=== PATIENT | male | born 2000 | race Caucasian/White ===

== ENCOUNTER 2022-07-27 04:10 | Observation (INO) ==
--- NOTE | 2022-07-27 04:36 | Emergency Department Note ---
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 He took his temperature at home and is 100.9. 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 Patient in the past had been on low-dose penicillin. Patient has received the Pneumovax vaccine. Patient is also up-to-date with all of his immunizations. Patient was told if he had a temperature greater than 101 that he needs to seek medical treatment and get blood cultures to make sure that he did not have sepsis or occult bacteremia or an overwhelming staph infection. Patient denies cough cold congestion symptoms. Patient had COVID during the summer and he self isolated and was on Paxlovid. Patient has no complaints of abdominal pain no chest pain no shortness of breath no diarrhea no rash no significant headache no neck pain no photophobia. Patient has no recent travel no recent antibiotic use Home Medications Medication Instructions Recorded Confirmed Type penicillin V potassium 250 mg 250 mg PO BID 05/02/19 05/02/19 History tablet Allergies Allergy/AdvReac Type Severity Reaction Status Date / Time cephalexin [From Keflex] Allergy Intermediate Rash Verified 05/02/19 17:42 Past Med/Surg History Medical History (Updated 07/27/22 @ 05:42 by Pedro Ulloa DO) Wilms' tumor Surgical History History of left nephrectomy History of splenectomy Social History Smoking Status: Current every day smoker Tobacco Type: E-cigarettes / Vaping Preferred Language: Indian Feels Safe at Home: Yes Review of Systems A total of 10 systems reviewed and were otherwise negative Constitutional: + fever, + chills and + fatigue Respiratory: no cough Cardiovascular: no chest pain Gastrointestinal: no abdominal pain Physical Exam Vital Signs Vital Signs - 24 hr 07/27/22 04:11 07/27/22 04:17 Temperature 37.4 C Temperature Source Oral Pulse Rate 120 H Respiratory Rate 18 Respiratory Effort / Characteristics Non-Labored Spontaneous Respiratory Depth Normal Blood Pressure 121/78 Blood Pressure Mean 92 Blood Pressure Position Sitting Pulse Oximetry 96 98 Oxygen Delivery Method Room Air Room Air Sepsis Recent Fever Within 48 Hours Yes Sepsis New/Unexplained Change in Mental Status No Sepsis Action Taken by Nursing No Action Required GENERAL: Patient is awake alert in no acute distress patient is resting comfortably and showing no signs of anxiety EYES: The conjunctivae are clear. The pupils are round and reactive. EARS, NOSE, MOUTH AND THROAT: The nose is without any evidence of any deformity. Mucous membranes are moist. Tongue is midline. NECK: The neck is nontender and supple. No meningismus RESPIRATORY: Normal respiratory effort is noted there is no evidence of wheezing rhonchi or rales CARDIOVASCULAR: Regular rate and rhythm noted there no murmurs rubs or gallops normal S1 normal S2. GASTROINTESTINAL: The abdomen is soft. Abdomen is nontender. large surgical scars present BACK: No midline tenderness or or step-off noted range of motion in flexion extension as well as rotation no signs of muscle spasm noted MUSCULOSKELETAL/EXTREMITIES: There is no evidence of gross deformity full range of motion is noted in the hips and shoulders. SKIN: There is no obvious evidence of any rash. There are no petechiae, pallor or cyanosis noted. NEUROLOGIC: Patient is awake alert and oriented x3 strength is symmetric PSYCH:Normal affect Course Reevaluation(s) Reevaluation #1: Patient received IV fluids he is resting in no distress on repeat examination he is not hypotensive. Time: 05:15 Reevaluation #2: Patient on repeat examination is resting in no distress. We have discussed the evaluation with the patient, the hospitalist is also bedside with me at the time of reevaluation Time: 05:41 Consultations Consultation #1: Consult to [facility] hospitalist Dr. George -states agrees with septic work- up and if essentially negative may be discharged on Augmentin with strict follow-up in 48 hours or for any worsening symptoms and blood cultures have been sent. Time: 05:15 Consultation #2: Spoke again with Dr. George, patient meets SIRS criteria and with his history of asplenia we will admit and placed on empiric antibiotics for now. Time: 05:41 Administered Medications Sodium Chloride (Nss 1000ml) 1,000 mls @ 999 mls/hr IV .Q1H1M LACIE Stop: 07/27/22 06:30 Last Admin: 07/27/22 04:48 Dose: 999 mls/hr Documented By: FELICIA Medical Decision Making Medical Records Attestation: I reviewed the patient's medical records. Home Medications Current Medication List: was personally reviewed by me Laboratory Data Attestation: I reviewed the patient's lab results. Slight elevation in white blood cell count with increased neutrophils 07/27/22 04:30 07/27/22 04:30 Lab Results 07/27/22 07/27/22 07/27/22 Range/Units 04:30 04:30 04:30 WBC 11.06 H (4.8-10.8) K/ul RBC 4.30 L (4.70-6.10) M/uL Hgb 14.5 (14.0-18.0) g/dl Hct 41.1 L (42.0-52.0) % MCV 95.6 (80.0-100.0) fL MCH 33.7 (25.0-34.0) pg MCHC 35.3 (32.0-36.0) g/dL RDW Std Deviation 46.4 H (36.4-46.3) fL RDW Coeff of Mayra 13.2 (11.5-14.5) % Plt Count 297 (130-400) K/uL MPV 10.1 (9.4-12.4) fL Immature Gran % (Auto) 0.3 % Neut % (Auto) 76.8 % Lymph % (Auto) 6.8 % [place] % (Auto) 14.8 % Eos % (Auto) 0.6 % Baso % (Auto) 0.7 % Neut # (Auto) 8.49 H (1.40-6.50) K/uL Lymph # (Auto) 0.75 L (1.2-3.4) K/uL [place] # (Auto) 1.64 H (0.11-0.59) K/uL Eos # (Auto) 0.07 (0-0.50) K/uL Baso # (Auto) 0.08 (0-0.2) K/uL Immature Gran # (Auto) 0.03 (0.01-0.20) K/uL Sodium 137 (136-145) mmol/L Potassium 4.1 (3.5-5.1) mmol/L Chloride 101 (98-107) mmol/L Carbon Dioxide 31 (21-32) mmol/L Anion Gap 5 (3-11) BUN 17 (6-23) mg/dl Creatinine 1.23 (0.6-1.4) mg/dl Est Cr Clr Drug Dosing 92.7 ml/min Est GFR ( Amer) 96.7 ml/min Est GFR (Non-Af Amer) 83.4 ml/min BUN/Creatinine Ratio 13.8 (10-20) Glucose 103 H (70-99(Fasting)) mg/dl Lactate 0.8 (0.4-2.0) mmol/L Calcium 9.8 (8.5-10.1) mg/dl Magnesium 1.9 (1.7-2.4) mg/dl Total Bilirubin 0.4 (0.2-1.0) mg/dl Direct Bilirubin 0.1 (0-0.2) mg/dl AST 20 (13-39) U/L ALT 14 (7-52) U/L Alkaline Phosphatase 78 (34-104) U/L Total Protein 8.0 (6.0-8.3) gm/dl Albumin 4.8 (3.4-5.0) gm/dl SARS-CoV-2 (PCR) (Negative) Influenza Type A (PCR) (Neg) Influenza Type B (PCR) (Neg) RSV (RT-PCR) (Neg) 07/27/22 Range/Units 04:30 WBC (4.8-10.8) K/ul RBC (4.70-6.10) M/uL Hgb (14.0-18.0) g/dl Hct (42.0-52.0) % MCV (80.0-100.0) fL MCH (25.0-34.0) pg MCHC (32.0-36.0) g/dL RDW Std Deviation (36.4-46.3) fL RDW Coeff of Mayra (11.5-14.5) % Plt Count (130-400) K/uL MPV (9.4-12.4) fL Immature Gran % (Auto) % Neut % (Auto) % Lymph % (Auto) % [place] % (Auto) % Eos % (Auto) % Baso % (Auto) % Neut # (Auto) (1.40-6.50) K/uL Lymph # (Auto) (1.2-3.4) K/uL [place] # (Auto) (0.11-0.59) K/uL Eos # (Auto) (0-0.50) K/uL Baso # (Auto) (0-0.2) K/uL Immature Gran # (Auto) (0.01-0.20) K/uL Sodium (136-145) mmol/L Potassium (3.5-5.1) mmol/L Chloride (98-107) mmol/L Carbon Dioxide (21-32) mmol/L Anion Gap (3-11) BUN (6-23) mg/dl Creatinine (0.6-1.4) mg/dl Est Cr Clr Drug Dosing ml/min Est GFR ( Amer) ml/min Est GFR (Non-Af Amer) ml/min BUN/Creatinine Ratio (10-20) Glucose (70-99(Fasting)) mg/dl Lactate (0.4-2.0) mmol/L Calcium (8.5-10.1) mg/dl Magnesium (1.7-2.4) mg/dl Total Bilirubin (0.2-1.0) mg/dl Direct Bilirubin (0-0.2) mg/dl AST (13-39) U/L ALT (7-52) U/L Alkaline Phosphatase (34-104) U/L Total Protein (6.0-8.3) gm/dl Albumin (3.4-5.0) gm/dl SARS-CoV-2 (PCR) NEGATIVE (Negative) Influenza Type A (PCR) Negative (Neg) Influenza Type B (PCR) Negative (Neg) RSV (RT-PCR) Negative (Neg) Imaging Data Attestation: I personally reviewed and interpreted this imaging study as follows: My Impression: Chest x-ray interpreted by me negative for infiltrate ECG Data Attestation: I personally reviewed and interpreted this ECG as follows: Additional Comments: EKG interpreted by me sinus tachycardia rate of 104 normal intervals normal axis no obvious ST segment elevation or depression MDM Narrative Medical decision making differential diagnosis includes viral syndrome, bronchitis upper respiratory tract infection pneumonia COVID occult bacteremia Plan is to check sepsis labs With the patient's history of asplenia, the patient does have criteria that is concerning for SIRS. 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
[2022-07-27] MEDS: SODIUM CHLORIDE 0.9% 1000ML 1,000 ML IV SCH ×2 (04:48→07:16)
[2022-07-27 04:53] LABS: Basophils # (auto) 0.08 K/uL (0-0.2); Basophils % (auto) 0.7 %; Eosinophils # (auto) 0.07 K/uL (0-0.50); Eosinophils % (auto) 0.6 %; Hematocrit (blood only) 41.1 % (42.0-52.0); Hemoglobin 14.5 g/dl (14.0-18.0); Immature Granulocytes # (auto) 0.03 K/uL (0.01-0.20); Immature Granulocytes % (auto) 0.3 %; Lymphocytes # (auto) 0.75 K/uL (1.2-3.4); Lymphocytes % (auto) 6.8 %; Mean Corpuscular Hemoglobin 33.7 pg (25.0-34.0); Mean Corpuscular Hgb Conc 35.3 g/dL (32.0-36.0); Mean Corpuscular Volume 95.6 fL (80.0-100.0); Mean Platelet Volume 10.1 fL (9.4-12.4); Monocytes # (auto) 1.64 K/uL (0.11-0.59); Monocytes % (auto) 14.8 %; Neutrophils # (auto) 8.49 K/uL (1.40-6.50); Neutrophils % (auto) 76.8 %; Platelet Count 297 K/uL (130-400); RDW Coefficient of Variation 13.2 % (11.5-14.5); RDW Standard Deviation 46.4 fL (36.4-46.3); White Blood Count 11.06 K/ul (4.8-10.8)
[2022-07-27 05:07] LABS: Albumin Level 4.8 gm/dl (3.4-5.0); BUN Creatinine Ratio 13.8 (10-20); Bilirubin Direct 0.1 mg/dl (0-0.2); Bilirubin,Total 0.4 mg/dl (0.2-1.0); Calcium 9.8 mg/dl (8.5-10.1); Creatinine Clr Calc Pharmacy 92.7 ml/min; Est GFR (African American) 96.7 ml/min; Est GFR (Non-African American) 83.4 ml/min; Magnesium 1.9 mg/dl (1.7-2.4); Potassium 4.1 mmol/L (3.5-5.1)
[2022-07-27] MEDS ORDERED: MEROPENEM 2,000 MG in 0.9 % SODIUM CHLORIDE 58 ML IV STA (05:21)
[2022-07-27] MEDS ORDERED: VANCOMYCIN CONSULT ACTIVE PRN ×2 (05:21→06:17)
[2022-07-27] MEDS ORDERED: VANCOMYCIN HCL 1,500 MG in SODIUM CHLORIDE 0.9% 500 ML IV ONE (05:21)
[2022-07-27 05:23] LABS: Influenza A virus by PCR Negative (Neg); Influenza B virus by PCR Negative (Neg); RSV by PCR Negative (Neg); SARS CoV2 RNA(COVID-19) Ceph NEGATIVE (Negative)
--- NOTE | 2022-07-27 05:28 | History & Physical Report ---
Date of Service July 27, 2022 Assessment & Plan (1) SIRS (systemic inflammatory response syndrome): Plan: 22yo male with history of asplenia, UTD on childhood vaccines presenting with sepsis. SIRS 2/4, unclear source. Patient with documented fever at home of 100 .9. Tachycardic on arrival to 120bpm. He has mild leukocytosis with WBC=11.06 with elevated neutrophils and monocytes and lymphopenia. Patient describes non- focal symptoms of headache fatigue and chills. Denies neck stiffness. Additional workup to include UA is pending. Given patient's asplenia and sepsis patient would benefit from brief hospitalization with empiric antibiotics while we await cultures. -Observation to medical with telemetry -Check mono-spot -Follow cultures -UA pending -Empiric Vancomycin and Meropenem. Patient has a documented allergy to Keflex from childhood -Tylenol PRN pain or fever -Zofran PRN nausea -Consider ID consultation F/E/N: LR at 125mL/hr x 1 liter, electrolytes WNL, regular diet as tolerated Ppx - Low risk for DVT, encourage ambulation as tolerated Code - Full Dispo - Observation to medical with telemetry History of Present Illness Chief Complaint: sepsis, asplenia Primary Care Provider: [facility] Triston Montero is a 22yo male with history of Wilms tumor s/p nephrectomy and splenectomy in 2008 presenting with fever. Patient developed a slight headache 07/26/22 around 22:00. He went to bed with the headache. He woke around 0300 this AM with worsening headache and chills. He took his temperature and found it to be elevated to 100.9. Patient called his parents who encouraged him to come to the ER. Patient does have empiric PCN VK at home. Did not take any prior to arrival. Still with frontal headache, feels like pressure. Patient denies visual changes, neck stiffness, nasal congestion, sore throat, swollen lymph nodes, dental pain, chest pain, cough, SOB, abdominal pain, nausea, vomiting, diarrhea, constipation, dysuria, penile discharge, skin rash or joint swelling/pain. No sick contacts or recent travel. No additional complaints at this time. In the ER he is found to be tachycardic. Heart rate initially 120bpm. Blood pressure is stable. No respiratory distress. Adequate oxygenation on room air. Labs as below with leukocytosis. Covid/Flu/RSV is NEGATIVE, Procalcitonin is NEGATIVE, Lactate=0.8, UA and cultures pending at this time. ER Course: NSS x 1L started Vancomycin 2gm ordered - not yet given Meropenem 2gm ordered - not yet given Allergies Allergy/AdvReac Type Severity Reaction Status Date / Time cephalexin [From Keflex] Allergy Intermediate Rash Verified 05/02/19 17:42 Home Medications Medication Instructions Recorded Confirmed Type penicillin V potassium 250 mg 250 mg PO BID 05/02/19 05/02/19 History tablet Past Med/Surg History Medical History Asplenia Wilms' tumor Surgical History History of left nephrectomy History of splenectomy Family History (Updated 07/27/22 @ 05:50 by Dasha George DO) Other Family history non-contributory Social History (Updated 07/27/22 @ 05:50 by Dasha George DO) Smoking Status: Current every day smoker Tobacco Type: E-cigarettes / Vaping Hx Alcohol Use: No Hx Substance Use: Yes Prescribed Medications: Marijuana Preferred Language: Persian Feels Safe at Home: Yes Review of Systems Review of Systems: All systems reviewed & are unremarkable except as noted in HPI & below Physical Exam Physical Exam: General: patient resting comfortably, NAD, non-toxic in appearance, AA&O x 4 Skin: warm, dry, intact, no rashes or lesions HEENT: NC/AT, PERRL, EOMI, anicteric sclera, conjunctiva without injection, external ear normal to inspection and nontender, nares patent, moist mucus membranes, dentition intact, no oropharyngeal lesions, neck supple, trachea midline, no LAD, no thyromegaly, no JVD, enlarged and cryptic tonsils bilaterally but no erythema, drainage or tonsil-stones Heart: +S1/S2, regular, tachycardic, no m/r/g Lungs: equal air entry bilaterally, no rales/rhonchi/wheezes Abd: +BS, soft, NT/ND, no masses/organomegaly/ascites Ext: warm, 2+ pulses in UE/LE bilaterally, no clubbing/cyanosis or edema Neuro: nonfocal, patient AA&O x 4, speech intact, no facial droop, moving all extremities on command with equal strength 5/5 Results & Data Results & Data ([facility]) Vital Signs (Past 12 Hours) Vital Signs Temp Pulse Resp BP Pulse Ox O2 Del Method 07/27/22 04:17 98 Room Air 07/27/22 04:11 37.4 C 120 H 18 121/78 96 Room Air Laboratory Results Laboratory Results WBC 11.06 K/ul (4.8-10.8) H 07/27/22 04:30 RBC 4.30 M/uL (4.70-6.10) L 07/27/22 04:30 Hgb 14.5 g/dl (14.0-18.0) 07/27/22 04:30 Hct 41.1 % (42.0-52.0) L 07/27/22 04:30 MCV 95.6 fL (80.0-100.0) 07/27/22 04:30 MCH 33.7 pg (25.0-34.0) 07/27/22 04:30 MCHC 35.3 g/dL (32.0-36.0) 07/27/22 04:30 RDW Std Deviation 46.4 fL (36.4-46.3) H 07/27/22 04:30 RDW Coeff of Mayra 13.2 % (11.5-14.5) 07/27/22 04:30 Plt Count 297 K/uL (130-400) 07/27/22 04:30 MPV 10.1 fL (9.4-12.4) 07/27/22 04:30 Immature Gran % (Auto) 0.3 % 07/27/22 04:30 Neut % (Auto) 76.8 % 07/27/22 04:30 Lymph % (Auto) 6.8 % 07/27/22 04:30 [place] % (Auto) 14.8 % 07/27/22 04:30 Eos % (Auto) 0.6 % 07/27/22 04:30 Baso % (Auto) 0.7 % 07/27/22 04:30 Neut # (Auto) 8.49 K/uL (1.40-6.50) H 07/27/22 04:30 Lymph # (Auto) 0.75 K/uL (1.2-3.4) L 07/27/22 04:30 [place] # (Auto) 1.64 K/uL (0.11-0.59) H 07/27/22 04:30 Eos # (Auto) 0.07 K/uL (0-0.50) 07/27/22 04:30 Baso # (Auto) 0.08 K/uL (0-0.2) 07/27/22 04:30 Immature Gran # (Auto) 0.03 K/uL (0.01-0.20) 07/27/22 04:30 Sodium 137 mmol/L (136-145) 07/27/22 04:30 Potassium 4.1 mmol/L (3.5-5.1) 07/27/22 04:30 Chloride 101 mmol/L (98-107) 07/27/22 04:30 Carbon Dioxide 31 mmol/L (21-32) 07/27/22 04:30 Anion Gap 5 (3-11) 07/27/22 04:30 BUN 17 mg/dl (6-23) 07/27/22 04:30 Creatinine 1.23 mg/dl (0.6-1.4) 07/27/22 04:30 Est Cr Clr Drug Dosing 92.7 ml/min 07/27/22 04:30 Est GFR ( Amer) 96.7 ml/min 07/27/22 04:30 Est GFR (Non-Af Amer) 83.4 ml/min 07/27/22 04:30 BUN/Creatinine Ratio 13.8 (10-20) 07/27/22 04:30 Glucose 103 mg/dl (70-99(Fasting)) H 07/27/22 04:30 Lactate 0.8 mmol/L (0.4-2.0) 07/27/22 04:30 Calcium 9.8 mg/dl (8.5-10.1) 07/27/22 04:30 Magnesium 1.9 mg/dl (1.7-2.4) 07/27/22 04:30 Total Bilirubin 0.4 mg/dl (0.2-1.0) 07/27/22 04:30 Direct Bilirubin 0.1 mg/dl (0-0.2) 07/27/22 04:30 AST 20 U/L (13-39) 07/27/22 04:30 ALT 14 U/L (7-52) 07/27/22 04:30 Alkaline Phosphatase 78 U/L (34-104) 07/27/22 04:30 Total Protein 8.0 gm/dl (6.0-8.3) 07/27/22 04:30 Albumin 4.8 gm/dl (3.4-5.0) 07/27/22 04:30 Procalcitonin < 0.05 ng/ml (0-0.5) 07/27/22 04:30 SARS-CoV-2 (PCR) NEGATIVE (Negative) 07/27/22 04:30 Influenza Type A (PCR) Negative (Neg) 07/27/22 04:30 Influenza Type B (PCR) Negative (Neg) 07/27/22 04:30 RSV (RT-PCR) Negative (Neg) 07/27/22 04:30 Diagnostic Findings CXR - by my interpretation - no acute process, no infiltrate or edema PG Care Time/CCT Total # of Minutes Spent Total Time Spent with Patient: Total time spent is greater than 50% in coordination of care (as documented) at patient's floor/unit and/or counseling patient: Coding Level of Care Code 95146 INT INP/OBS CARE 2/55MIN Diagnoses SIRS (systemic inflammatory response syndrome) R65.10
[2022-07-27 05:58] LABS: Appearance Urine Clear (Clear); Bilirubin Urine Negative (Negative); Blood Urine Negative (Negative); Color Urine Yellow; Glucose Urine UA Negative (Negative); Ketones Urine Negative (Negative); Leukocyte Esterase Urine Negative (Negative); Nitrite Urine Negative (Negative); Protein Urine Negative (Negative); Specific Gravity Urine 1.009 (1.000-1.030); Urobilinogen Urine Negative (Negative); pH Urine 6.5 (4.5-7.5)
[2022-07-27] MEDS ORDERED: ACETAMINOPHEN 325 MG TAB PO PRN (06:17)
[2022-07-27] MEDS ORDERED: ONDANSETRON INJ 2 MG/ML 2 ML VIAL IV PRN (06:17)
[2022-07-27] MEDS ORDERED: LACTATED RINGER'S 1,000 ML IV SCH (06:17)
--- NOTE | 2022-07-27 08:46 | XRay Report ---
XR chest 1V portable HISTORY: 22 years-old Male Sepsis acute sepsis COMPARISON: 05/02/2019 TECHNIQUE: AP view of the chest FINDINGS: Cardiomediastinal and hilar silhouettes are within normal limits. Surgical clips project over the upp er abdomen. No pneumothorax, pleural effusion, airspace consolidation or overt pulmonary edema. Bones of the chest appear grossly intact. IMPRESSION: No acute process. ACT 112: Negative or not required by law. The above report was generated using voice recognition software. It may contain grammatical, syntax o r spelling errors. Electronically signed by: Jordin Ruiz M.D. 07/27/2022 8:45 AM
--- NOTE | 2022-07-27 09:17 | Electrocardiogram Report ---
Test Reason : Blood Pressure : / mmHG Vent. Rate : 104 BPM Atrial Rate : 104 BPM P-R Int : 144 ms QRS Dur : 092 ms QT Int : 320 ms P-R-T Axes : 061 089 025 degrees QTc Int : 420 ms Sinus tachycardia Possible Left atrial enlargement Borderline ECG When compared with ECG of 02-MAY-2019 17:17, No significant change was found Confirmed by Hieu Hawk ([id number]) on 07/27/2022 9:16:27 AM Referred By: REFERRED SELF Confirmed By:Hieu Hawk
--- NOTE | 2022-07-27 11:23 | Infectious Disease Consult ---
Date of Consultation July 27, 2022 Assessment & Plan (1) SIRS (systemic inflammatory response syndrome): #Fever/SIRS -negative COVID/flu/RSV. Procalcitonin less than 0.05. UA was negative. -Monospot was positive. -Portable chest x-ray showed no acute process. -Bcxs pending -on empiric meropenem/vancomycin - pt is not on PCN ppx, and does not have h/o frequent infections- reports last occasion was 2018 #h/o wilms tumor, s/p nephrectomy and splenectomy Plan Rec: Supportive care for mononucleosis- discussed with patient precautions to take to prevent infecting others Low suspicion for bacterial infection, so will stop antibiotics at this time. Pt feels significantly improved, and ready to go home and appears very non- toxic. If Bcxs unexpectedly positive, pt advised he would be contacted to return to hospital. Discussed with primary team. Consultation Information Consultation was provided via telemedicine using two-way real-time interactive telecommunication between the patient and the telemedicine provider. For the duration of the visit, the provider was performing the assessment from a different facility than the patient. This includesuse of bluetooth stethoscope forauscultationperformed by the telepresenter that the telemedicine provider can hear if described in the physical exam. Forestry Technician contact information: Please call [facility] . (Phone Number For Physician Use Only) After establishing a telemedicine visit, patient was: Patient was verified with two unique identifiers, Patient/authorized rep acknowledged consent and understanding and Gave permission to continue telehealth session Time Spent with Patient: Initial => 40 min History of Present Illness Attending Physician: Annette Neely MD History of Present Illness ID consult requested for fever and mononucleosis in this 22-year-old male, past medical history of Wilms tumor, left nephrectomy and splenectomy, reportedly UTD with immunizations, who presented to the ED on 07/27/2022 reporting headache, chills, fatigue and a temperature of 100.9 earlier that morning. He denied any URI symptoms, cough, abdominal pain, shortness of breath, diarrhea, rash, significant headache, neck pain or photophobia. He denied any recent travel. In the ED, temperature was 37.4, heart rate 120, respiratory rate 18, O2 saturation 96% on room air, blood pressure 121/78. Admission labs significant for WBC 11.06, 76.8% neutrophils, 6.8 lymphocytes, creatinine 1.23, nl LFTs, lactate 0.8, negative COVID/flu/RSV. Procalcitonin less than 0.05. UA was negative. Monospot was positive. Portable chest x-ray showed no acute process. Creatinine in 2019 was 1.2. 07/27 blood cultures are pending. Patient is currently on meropenem 2 g IV every 8 and vancomycin 1 g IV every 12. Patient with reported allergy to cephalexin (rash) but has tolerated ceftriaxone. He was also discharged from the ED in April 2019 on cefdinir. Patient has been afebrile, hemodynamically stable and on room air. He denies sore throat, LAD, abd pain, rash or sick contacts. He reports he had mono approx. 4 years ago. He lives with 2 roommates. He reports feeling much better- MCNULTY resolved, fatigue improved. Last ED note in EMR is from 2019 and he reports he has not had an infection since 2019. He is no longer on penicillin prophylaxis after discussion with his oncologist who told him it was up to him. Allergies Allergy/AdvReac Type Severity Reaction Status Date / Time cephalexin [From Keflex] Allergy Intermediate Rash Verified 05/02/19 17:42 Home Medications Medication Instructions Recorded Confirmed Type penicillin V potassium 250 mg 250 mg PO BID 05/02/19 05/02/19 History tablet Patient History Medical History Asplenia Wilms' tumor Surgical History History of left nephrectomy History of splenectomy Family History Other Family history non-contributory Social History Smoking Status: Never smoker Tobacco Type: E-cigarettes / Vaping Second Hand Exposure: No; Hx Alcohol Use: Yes Alcohol type: beer Hx Substance Use: Yes Prescribed Medications: Marijuana Last Used Substance: Days (ago) Last Used Substance Other:: 2 weeks ago Preferred Language: Gibraltarian Communication Ability: Effective Clinical Medical Transcriptionist Required: No Current Living Situation: Other Current Living Situation Comment: apartment with roommates Feels Safe at Home: Yes Assistive Devices: None Review of System as per HPI Physical Exam Physical Exam: PE: Gen: Awake, alert, NAD, well-appearing HEENT: anicteric, mmm, neck supple, tonsils enlarged but no noted erythema or exudate, no LAD Resp: no resp distress on RA Abd: Soft, NT/ND Extr: no c/c/e Skin: R peripheral IV ok. No rash noted on back/abd/extremities Results & Data ([facility]) Vital Signs (Past 12 Hours) Vital Signs Temp Pulse Pulse Resp BP BP Pulse Ox 07/27/22 11:02 36.8 C 83 18 113/68 97 07/27/22 07:43 37.3 C 103 H 18 114/69 96 07/27/22 06:10 96 07/27/22 06:18 37.3 C 103 H 18 130/80 93 07/27/22 05:50 37.4 C 106 H 14 131/74 100 07/27/22 04:17 98 07/27/22 04:11 37.4 C 120 H 18 121/78 96 O2 Del Method 07/27/22 11:02 Room Air 07/27/22 07:43 Room Air 07/27/22 06:10 Room Air 07/27/22 06:18 Room Air 07/27/22 05:50 Room Air 07/27/22 04:17 Room Air 07/27/22 04:11 Room Air Laboratory Results 07/27/22 04:30 Aerobic Blood Culture - Pending Blood Anaerobic Blood Culture - Pending 07/27/22 04:50 Aerobic Blood Culture - Pending Blood Anaerobic Blood Culture - Pending 07/27/22 07/27/22 07/27/22 05:30 04:30 04:30 WBC RBC Hgb Hct MCV MCH MCHC RDW Std Deviation RDW Coeff of Mayra Plt Count MPV Immature Gran % (Auto) Neut % (Auto) Lymph % (Auto) [place] % (Auto) Eos % (Auto) Baso % (Auto) Neut # (Auto) Lymph # (Auto) [place] # (Auto) Eos # (Auto) Baso # (Auto) Immature Gran # (Auto) Sodium Potassium Chloride Carbon Dioxide Anion Gap BUN Creatinine Est Cr Clr Drug Dosing Est GFR ( Amer) Est GFR (Non-Af Amer) BUN/Creatinine Ratio Glucose Lactate Calcium Magnesium Total Bilirubin Direct Bilirubin AST ALT Alkaline Phosphatase Total Protein Albumin Procalcitonin Urine Color Yellow Urine Appearance Clear Urine pH 6.5 Ur Specific Stephenson 1.009 Urine Protein Negative Urine Glucose (UA) Negative Urine Ketones Negative Urine Blood Negative Urine Nitrite Negative Urine Bilirubin Negative Urine Urobilinogen Negative Ur Leukocyte Esterase Negative SARS-CoV-2 (PCR) NEGATIVE Monoscreen Positive A Influenza Type A (PCR) Negative Influenza Type B (PCR) Negative RSV (RT-PCR) Negative 07/27/22 07/27/22 07/27/22 04:30 04:30 04:30 WBC RBC Hgb Hct MCV MCH MCHC RDW Std Deviation RDW Coeff of Mayra Plt Count MPV Immature Gran % (Auto) Neut % (Auto) Lymph % (Auto) [place] % (Auto) Eos % (Auto) Baso % (Auto) Neut # (Auto) Lymph # (Auto) [place] # (Auto) Eos # (Auto) Baso # (Auto) Immature Gran # (Auto) Sodium 137 Potassium 4.1 Chloride 101 Carbon Dioxide 31 Anion Gap 5 BUN 17 Creatinine 1.23 Est Cr Clr Drug Dosing 92.7 Est GFR ( Amer) 96.7 Est GFR (Non-Af Amer) 83.4 BUN/Creatinine Ratio 13.8 Glucose 103 H Lactate 0.8 Calcium 9.8 Magnesium 1.9 Total Bilirubin 0.4 Direct Bilirubin 0.1 AST 20 ALT 14 Alkaline Phosphatase 78 Total Protein 8.0 Albumin 4.8 Procalcitonin < 0.05 Urine Color Urine Appearance Urine pH Ur Specific Stephenson Urine Protein Urine Glucose (UA) Urine Ketones Urine Blood Urine Nitrite Urine Bilirubin Urine Urobilinogen Ur Leukocyte Esterase SARS-CoV-2 (PCR) Monoscreen Influenza Type A (PCR) Influenza Type B (PCR) RSV (RT-PCR) 07/27/22 04:30 WBC 11.06 H RBC 4.30 L Hgb 14.5 Hct 41.1 L MCV 95.6 MCH 33.7 MCHC 35.3 RDW Std Deviation 46.4 H RDW Coeff of Mayra 13.2 Plt Count 297 MPV 10.1 Immature Gran % (Auto) 0.3 Neut % (Auto) 76.8 Lymph % (Auto) 6.8 [place] % (Auto) 14.8 Eos % (Auto) 0.6 Baso % (Auto) 0.7 Neut # (Auto) 8.49 H Lymph # (Auto) 0.75 L [place] # (Auto) 1.64 H Eos # (Auto) 0.07 Baso # (Auto) 0.08 Immature Gran # (Auto) 0.03 Sodium Potassium Chloride Carbon Dioxide Anion Gap BUN Creatinine Est Cr Clr Drug Dosing Est GFR ( Amer) Est GFR (Non-Af Amer) BUN/Creatinine Ratio Glucose Lactate Calcium Magnesium Total Bilirubin Direct Bilirubin AST ALT Alkaline Phosphatase Total Protein Albumin Procalcitonin Urine Color Urine Appearance Urine pH Ur Specific Stephenson Urine Protein Urine Glucose (UA) Urine Ketones Urine Blood Urine Nitrite Urine Bilirubin Urine Urobilinogen Ur Leukocyte Esterase SARS-CoV-2 (PCR) Monoscreen Influenza Type A (PCR) Influenza Type B (PCR) RSV (RT-PCR) Diagnostic Findings Chest X-Ray 07/27/22 04:17 XR chest 1V portable HISTORY: 22 years-old Male Sepsis acute sepsis COMPARISON: 05/02/2019 TECHNIQUE: AP view of the chest FINDINGS: Cardiomediastinal and hilar silhouettes are within normal limits. Surgical clips project over the upper abdomen. No pneumothorax, pleural effusion, airspace consolidation or overt pulmonary edema. Bones of the chest appear grossly intact. IMPRESSION: No acute process. ACT 112: Negative or not required by law. The above report was generated using voice recognition software. It may contain grammatical, syntax or spelling errors. Electronically signed by: Jordin Ruiz M.D. 07/27/2022 8:45 AM
[2022-07-27] MEDS ORDERED: MEROPENEM 2,000 MG in 0.9 % SODIUM CHLORIDE 58 ML IV SCH (14:00)
[2022-07-27] MEDS ORDERED: VANCOMYCIN HCL 1,000 MG in SODIUM CHLORIDE 0.9% 250 ML IV SCH (15:00)
--- NOTE | 2022-07-27 15:27 | Discharge Summary ---
Date of Service July 27, 2022 Admission HPI Per Admitting Provider rTiston Montero is a 22yo male with history of Wilms tumor s/p nephrectomy and splenectomy in 2008 presenting with fever. Patient developed a slight headache 07/26/22 around 22:00. He went to bed with the headache. He woke around 0300 this AM with worsening headache and chills. He took his temperature and found it to be elevated to 100.9. Patient called his parents who encouraged him to come to the ER. Patient does have empiric PCN VK at home. Did not take any prior to arrival. Still with frontal headache, feels like pressure. Patient denies visual changes, neck stiffness, nasal congestion, sore throat, swollen lymph nodes, dental pain, chest pain, cough, SOB, abdominal pain, nausea, vomiting, diarrhea, constipation, dysuria, penile discharge, skin rash or joint swelling/pain. No sick contacts or recent travel. No additional complaints at this time. In the ER he is found to be tachycardic. Heart rate initially 120bpm. Blood pressure is stable. No respiratory distress. Adequate oxygenation on room air. Labs as below with leukocytosis. Covid/Flu/RSV is NEGATIVE, Procalcitonin is NEGATIVE, Lactate=0.8, UA and cultures pending at this time. ER Course: NSS x 1L started Vancomycin 2gm ordered - not yet given Meropenem 2gm ordered - not yet given Principal Diagnosis Infectious mononucleosis Asplenia Discharge Exam Constitutional WD/WN, vitals as above Eyes PERRL, conjunctivae normal, anicteric sclerae ENMT Mouth: + oropharynx abnormality (3+ tonsillar hypertrophy with erythema,no exudate); no tongue abnormality Neck normal visual inspection and trachea midline; no anterior neck swelling, no submandibular swelling, neck nontender, no torticollis, negative Brudzinski's sign, negative Kernig's sign and no nuchal rigidity Respiratory normal respiratory effort, lungs clear to auscultation Cardiovascular RRR, no murmur, no edema Gastrointestinal (Abdomen) normal bowel sounds, soft, nontender, no hepatosplenomegaly Skin no rashes, warm and dry Neurologic PERRL, EOMI, accommodation nl, no face palsy, no dysarthria Psychiatric A+Ox3, euthymic affect Lymphatic no cervical lymphadenopathy Discharge Data Allergies Allergy/AdvReac Type Severity Reaction Status Date / Time cephalexin [From Keflex] Allergy Intermediate Rash Verified 05/02/19 17:42 Consultations 07/27/22 05:24 ED Decision to Admit Stat 07/27/22 05:42 ED Decision to Admit Stat 07/27/22 08:09 Consult Infectious Diseases Routine Hospital Course (1) SIRS (systemic inflammatory response syndrome): 22yo male with history of asplenia, UTD on childhood vaccines presenting with sepsis. SIRS 2/4,plus now found to be positive for Monospot. Patient with documented fever at home of 100.9. Tachycardic on arrival to 120bpm. He has mild leukocytosis with WBC=11.06 with elevated neutrophils and monocytes and lymphopenia. Patient describes non-focal symptoms of headache fatigue and chills. Denies neck stiffness. CXR negative, UA negative. Given patient's asplenia and sepsis patient would benefit from brief hospitalization was admitted and started on empiric antibiotics with Meropenem and Vanco given allergy to keflex (typically would give ceftriaxone and vanco) Flu, COVID negative No signs of meningitis After admission was given IVFs, tylenol, and sinus tachycardia improved. Fever resolved Blood cultures no growth thus far. Monospot returned positive. ID consult placed-discussed care with ID on the phone. Plan to dc to home without any abx as low suspicion for bacterial infection. If BCxs return positive after discharge, will contact patient. Supportive care for mono. Checked EBV titers as this is his second occurrence of mono and not with all the typical presentation ie no cervical MARTIN, no sore throat, etc. Low chance this could be a false positive Monospot. PCP can f/u on EBV titer result Stable for dc to home has PCN VK on hand at home as needed for fevers (2) Infectious mononucleosis: (3) History of splenectomy: Total Time Total Time Spent Total Time Spent (In Minutes): 35 min Discussed care with ID Discharge Plan Discharge Items Patient Disposition: Home - Self-Care Reason For Visit: FEVER / TACHYCARDIA IN ASPLENIA Discharge Diagnosis: Fever, Infectious mononucleosis Activity: Resume your previous activity Non-emergency contact: Primary Care Provider Call non-emergency contact if: you have any medication questions and your symptoms worsen Follow-up/Referrals: [place],[facility] [Primary Care Provider] - (Follow up within 1-2 weeks.) Diet: Regular Addtl Attending Provider Instructions: You can continue to take acetaminophen as needed for fever or headache. You do not need to take any antibiotics. If your blood cultures start growing any bacteria after you leave the hospital, you will be contacted. You tested positive on a "monospot" test for mononucleosis. A confirmatory test for Stefanie Freeman Virus was sent away and will take about 5-7 days to result. Please have your PCP follow up on this result after you see them in the office. You can shed mono virus particles in your saliva for a long time, but after a few weeks, it may not be likely to be as contagious. Pending Studies at Discharge: Yes Studies:: EBV titers, Blood cultures Stand-Alone Forms: My [facility], Smoking Cessation Medications and DC Order Prescriptions: New acetaminophen 325 mg Tablet 650 mg PO Q4H PRN (Reason: fever or pain) Qty: 30 0RF Changed penicillin V potassium 250 mg Tablet 250 mg PO BID PRN (Reason: fever) Qty: 20 0RF Discharge Orders: Discharge Order (Routine); Ordered 07/27/22 Ordered By: Annette Neely Admission Data Admit Date/Time: 07/27/22 05:25 Attending Provider: Annette Neely Admit Provider: Dasha George Primary Care Provider: [facility] Other Providers: Dasha George ; Latonia Calderon Other Interventions: Discharge Summary Assessment (RN) Last Done: 07/27/22 15:12 Coding Level of Care Code INP/OBS EV SAME DAY LV 3,85MIN Diagnoses SIRS (systemic inflammatory response syndrome) R65.10 Infectious mononucleosis B27.90 History of splenectomy Z90.81
== END 2022-07-27 17:02 | disposition home or self-care (01) ==
LOC: 2S 04:10 → ED 04:10 → SUATTDRO 05:25 → 2S 05:50